=== PATIENT | male | born 1935 | race Caucasian/White ===

== ENCOUNTER 2018-03-10 09:59 | Observation (INO) | payer MEDICARE, OTHER ==
[2018-03-10 11:05] LABS: Hematocrit 33.5 % (42.0-52.0); Hemoglobin 11.5 gm/dL (13.5-18.0); Mean Cell Volume 90.1 fl (78-100); Mean Corpuscular Hemoglobin 30.9 pg (27-31); Mean Corpuscular Hgb Conc 34.3 g/dl (32-36); Mean Platelet Volume 10.8 fl (8-11.3); Neutrophil # 1.9 K/mm3 (1.3-6.0); Red Blood Count 3.72 M/mm3 (4.7-6.0); Red Cell Distribution Width 13.1 % (11.5-14.0); White Blood Count 2.7 K/mm3 (4.0-10.5)
[2018-03-10 11:07] LABS: Platelet Count 98 K/mm3 (150-450)
[2018-03-10 11:10] LABS: ALT 27 U/L (19-67); AST 44 U/L (0-48); Albumin * 3.4 gm/dl (3.4-5.0); Alkaline Phosphatase * 103 U/L (50-170); BUN/Creatinine Ratio 21.8 (9.0-21.6); Blood Urea Nitrogen 19 mg/dL (6-23); Ca. Corrected For Albumin 8.5 mg/dL (8.4-10.2); Calcium * 8.3 mg/dL (7.9-10.9); Carbon Dioxide 25.5 mmol/L (24-32.6); Chloride 98 mmol/L (97-106); Glucose * 102 mg/dL (70-110); Lipase 101 U/L (73-393); Potassium 3.5 mmol/L (3.4-4.6); Sodium 133 mmol/L (132-142); Total Protein 6.3 gm/dL (6.2-8.2)
[2018-03-10 11:13] LABS: CK Total * 1028 U/L (0-259); Troponin I 0.045 ng/mL (0.00-0.10)
[2018-03-10] MEDS ORDERED: NORMAL SALINE 1,000 ML IV ONE (11:14)
[2018-03-10 12:59] LABS: Urine Bilirubin Negative (NEGATIVE); Urine Blood 25 /ul (NEGATIVE); Urine Ketone 15 mg/dL (NEGATIVE); Urine Nitrite Negative (NEGATIVE); Urine Protein 30 mg/dL (NEGATIVE); Urine Specific Gravity 1.025 SP.GR. (1.005-1.030); Urine Urobilinogen Normal (NORMAL)
[2018-03-10 13:29] LABS: Urine Appearance Clear (CLEAR); Urine Bacteria None Seen; Urine Color Dark Yellow; Urine RBC 0-5 /hpf (0-5); Urine WBC TRACE /hpf (0-5)
--- NOTE | 2018-03-10 17:18 | ERNOTE ---
Trauma/Assault HPI - Narrative Date of Service: 03/10/18 - General Stated Complaint: FALL Time Seen by Provider: 03/10/18 10:10 Source: patient, other - friend Exam Limitations: no limitations - Immun/Allergies/Home Medications Immunizations: IMMUNIZATION HX Immunizations Up to Date Yes History of Influenza Vaccine No Hx Pneumococcal Vaccination Yes Allergies/Adverse Reactions: Allergies venom-honey bee [bee venom (honey bee)] Allergy (Verified 03/10/18 10:07) venom-wasp [wasp venom] Allergy (Verified 03/10/18 10:07) Home Medications: HOME MEDICATIONS Acetaminophen [Tylenol] 500 mg PO QID PRN 11/16/14 [Last Taken Unknown] EPINEPHrine [Epipen] 0.3 mg IM ONCE PRN 11/16/14 [Last Taken Unknown] Lisinopril [Prinivil] 10 mg PO ONCE 12/27/17 [Last Taken Unknown] gabapentin 300 mg capsule 300 mg PO DAILY 12/30/17 [Last Taken Unknown] - History of Present Illness Narrative: Patient presents to the ED via EMS. He does not recall events but by report he had fallen and had not been able to get up. He has a hard time getting around at baseline. His friend found him by the bed on the floor, he had fallen overnight. he could not get up so ES was called. He has phong e rib pain but denies any other acute complaints. No CP or SOB. No abdominal pain. No acute focal weakness. No pain with urination. He denies syncope. No LOC or neck pain. Location Occurred: Reports: home Pain Location: Reports: other - ibs Method of Injury: Reports: fall Severity: mild Modifying Factors - (Improves): Reports: other - rest Modifying Factors - (Worsens): Reports: other - palpation Loss of Consciousness: Reports: no loss of consciousness Associated Symptoms - Trauma: Denies: headache, chest pain, shortness of breath, abdominal pain, vomiting Review of Systems - Review of Systems Constitutional: Absent: fever EYE: Absent: vision changes ENT: Absent: sore throat Respiratory: Present: See HPI Cardiology: Present: See HPI Gastrointestinal/Abdominal: Absent: abdominal pain Skin: Absent: rash Neurological: Absent: weakness All Other Systems: All systems neg except as marked Medical History (Last Reviewed 03/10/18 @ 17:14 by Juanito Stinson MD) Erectile dysfunction Onset Date: Unknown HZV (herpes zoster virus) post herpetic neuralgia Onset Date: Unknown History of alcoholism Onset Date: Unknown Hyperlipidemia Onset Date: Unknown Hypertension Onset Date: Unknown Osteoarthritis Onset Date: Unknown Osteoporosis Onset Date: Unknown Peptic ulcer disease Onset Date: Unknown History of melena Onset Date: Unknown Surgical History: Surgical History (Last Reviewed 03/10/18 @ 17:14 by Juanito Stinson MD) H/O colonoscopy Onset Date: ~07/2003 H/O repair of rotator cuff Onset Date: ~1999 History of excision of lesion Onset Date: ~01/05/08 History of left knee replacement Onset Date: ~06/2002 History of prostate biopsy Onset Date: ~12/24/05 History of right hip replacement Onset Date: ~06/1999 Family History: Family History (Last Reviewed 03/10/18 @ 17:14 by Juanito Stinson MD) Grandmother Diabetes Mother Heart disease Social History: Preferred Language Romanian Do you have any hoahaoism or No cultural preference? Smoking Status Former smoker Abuse History No History of abuse Psych History No pertinent hx Alcohol Use heavy Drug Use none Physical Exam - Physical Exam General Appearance: Present: alert, no apparent distress Head Exam: Present: normal inspection, no evidence of injury. Absent: Murry's Sign, raccoon eyes Eye Exam: EOMI: bilateral Ears, Nose, Throat: Present: normal ENT inspection. Absent: dry mucous memb ranes Neck: Present: normal inspection, nontender. Absent: tender posterior midline Respiratory: Present: no respiratory distress, normal breath sounds, no accessory muscle use, lungs clear Cardiovascular/Chest: Present: regular rate, rhythm, normal peripheral pulses, chest tenderness Gastrointestinal/Abdominal: Present: normal bowel sounds, nontender, nondistended, soft Back Exam: Present: no vertebral tenderness. Absent: CVA tenderness (R), CVA tenderness (L) Extremity Exam: Present: other - chronic right hip pain, no other clear acute deformity or tenderness Neurological Exam: Present: alert, other - confused at baseline per friends. No clear acute focal motor or sensory deficits. Ambulates with nurses, by report at his baseline Skin Exam: Present: normal color, warm/dry ED Progress - Results and Orders Patient's Lab Results:: I have reviewed the patient's lab results. - Vital Signs Patient's Vital Signs:: I have reviewed the patient's vital signs. Vital Signs: Vital Signs 03/10/18 10:03 03/10/18 11:26 03/10/18 11:30 Temperature 36.7 C Pulse Rate 89 80 78 Respiratory Rate 20 23 H 20 Blood Pressure 131/67 126/58 134/65 O2 Sat by Pulse Oximetry 96 98 03/10/18 12:00 03/10/18 12:30 03/10/18 13:55 Temperature 36.8 C Pulse Rate 78 77 69 Respiratory Rate 23 H 22 H 15 Blood Pressure 131/66 136/67 131/56 O2 Sat by Pulse Oximetry 97 98 97 - EKG EKG: NSR EKG read: Interp. by me EKG Comments: NSR rate 85. Non-specific, no STEMI noted. - X-Ray X-Ray #1 X-Ray: chest Interpretation: Interp. by me X-ray Comments: I reviewed official radiology report X-Ray #2 X-Ray: hip Interpretation: Interp. by me X-ray Comments: I reviewed official radiology report - CT/Ultrasound CT/Ultrasound Narrative: I reviewed official radiology report HCT - Progress/Reassessment Chief Complaint: Fall Progress Note-Subjective: 03/10/18 18:38 Case management involved. Daughter was coming from [place] to try and take him home so he stayed in the ED. Daughter arrived. She relates that he is much more confused than normal and much weaker and off balance. They tried to get him around here but could not. Given this he is not safe for discharge. D/W Dr Grider who will admit. Departure Clinical Impression: Fall, Elevated CK, Confusion, Gait instability, Adult failure to thrive - Departure Disposition: Still a patient Condition: Stable Referrals: Blank Bustos MD [Primary Care Provider] - Critical Care Time - Critical Care Critical Time Spent:: No
[2018-03-10] MEDS ORDERED: ACETAMINOPHEN 500 MG TABLET PO PRN (22:39)
[2018-03-10] MEDS ORDERED: LISINOPRIL 10 MG TABLET PO SCH (22:45)
--- NOTE | 2018-03-10 22:49 | HP ---
Chief Complaint - Chief Complaint Date of Service: 03/10/18 Time of Service: 22:48 Chief Complaint: Fall, found down, weak History of Present Illness: Ben is an 82 yo male who was found down at his home today. He was laying next to his bed for some unknown amount of time. He has known progressive dementia that has been declining recently. He was brought in to the [facility] ER for evaluation. Bloodwork overall was normal minus an elevated CK of 1000. The patient is pleasantly confused. He denies any concerns but is not sure where he is. He is unable to tell me where he lives or if anyone stays with him. He has difficulty finding the words to answer. Medical History (Last Updated 03/11/18 @ 02:07 by Lyly Chan RN) Dementia Spider bite Hyperlipidemia Onset Date: Unknown Hypertension Onset Date: Unknown Osteoarthritis Onset Date: Unknown Osteoporosis Onset Date: Unknown Surgical History: Surgical History (Last Updated 03/11/18 @ 01:34 by Lyly Chan RN) H/O colonoscopy Onset Date: ~07/2003 History of excision of lesion Onset Date: ~01/05/08 History of left knee replacement Onset Date: ~06/2002 History of right hip replacement Onset Date: ~06/1999 Family History: Family History (Last Updated 03/11/18 @ 02:06 by Lyly Chan RN) Grandmother Diabetes Mother Heart disease Myocardial infarction Father Emphysema of lung Social History: Patient Lives/Resources Home Utilized 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 Smoking Status Former smoker Have you smoked in the past 12 No months Do you dip or chew tobacco No Abuse History No History of abuse Psych History No pertinent hx Alcohol Use heavy Drug Use none Review Of Systems (GEN) - Review of Systems Additional Comments: Unable to obtain at this time. Patient has no reported concerns. Immunizations: IMMUNIZATION HX Immunizations Up to Date Yes History of Influenza Vaccine No Hx Pneumococcal Vaccination Yes Allergies/Adverse Reactions: Allergies Allergy/AdvReac Type Severity Reaction Status Date / Time venom-honey bee Allergy Verified 03/10/18 10:07 [bee venom (honey bee)] venom-wasp [wasp venom] Allergy Verified 03/10/18 10:07 Home Medications: HOME MEDICATIONS Lisinopril [Prinivil] 10 mg PO ONCE 12/27/17 [Last Taken 03/09/18] gabapentin 300 mg capsule 300 mg PO DAILY 12/30/17 [Last Taken 03/09/18] Exam - Exam Vital Signs: Vital Signs - Last Taken Temp 36.8 C 03/10/18 19:14 Pulse 68 03/10/18 19:14 Resp 16 03/10/18 19:14 BP 128/55 03/10/18 19:14 Pulse Ox 97 03/10/18 19:14 Constitutional: Present: Alert, No distress. Absent: Oriented x3 ENT Exam: Present: hearing grossly normal Eye Exam: bilateral eye: normal inspection Respiratory: Present: lungs clear, normal breath sounds, no respiratory distress Cardiovascular/Chest: Present: no edema, tachycardia Peripheral Pulses: radial (R): 2+, radial (L): 2+ Abdomen: Present: Normal bowel sounds, soft, nontender, nondistended, no rebound tenderness, no hepatospenomegaly Extremity: Present: normal inspection Skin Exam: Present: normal color, warm/dry, no cyanosis Lymphatic: Present: no adenopathy Neurologic: Present: other - Patient is pleasantly confused. He has a GCS of 14 due to verbal confusion. He is alert but oriented x 0 Eye contact: Present: cooperative, good eye contact Diagnostic Studies: Abnormal Lab Results 03/10/18 03/10/18 03/10/18 Range/Units 10:33 10:33 12:45 WBC 2.7 L (4.0-10.5) K/mm3 RBC 3.72 L (4.7-6.0) M/mm3 Hgb 11.5 L (13.5-18.0) gm/dL Hct 33.5 L (42.0-52.0) % Plt Count 98 L (150-450) K/mm3 Immature Gran % (Auto) 0.70 H (0.001-0.429) % Lymphocytes % 19.3 L (20-51) % Monocytes % 10.6 H (0.0-9) % Lymphocytes # 0.53 L (1.5-3.5) k/mm3 BUN/Creatinine Ratio 21.8 H (9.0-21.6) Creatine Kinase 1028 H (0-259) U/L Urine Protein 30 H (NEGATIVE) mg/dL Urine Blood 25 H (NEGATIVE) /ul Laboratory Results WBC 2.7 K/mm3 (4.0-10.5) L 03/10/18 10:33 RBC 3.72 M/mm3 (4.7-6.0) L 03/10/18 10:33 Hgb 11.5 gm/dL (13.5-18.0) L 03/10/18 10:33 Hct 33.5 % (42.0-52.0) L 03/10/18 10:33 MCV 90.1 fl (78-100) 03/10/18 10:33 MCH 30.9 pg (27-31) 03/10/18 10:33 MCHC 34.3 g/dl (32-36) 03/10/18 10:33 RDW 13.1 % (11.5-14.0) 03/10/18 10:33 Plt Count 98 K/mm3 (150-450) L 03/10/18 10:33 MPV 10.8 fl (8-11.3) 03/10/18 10:33 Immature Gran % (Auto) 0.70 % (0.001-0.429) H 03/10/18 10:33 Immature Gran # (Auto) 0.02 K/mm3 (0.000-0.0310) 03/10/18 10:33 Neutrophils % 69.0 % (42-75.0) 03/10/18 10:33 Lymphocytes % 19.3 % (20-51) L 03/10/18 10:33 Monocytes % 10.6 % (0.0-9) H 03/10/18 10:33 Eosinophils % 0.0 % (0.0-3.0) 03/10/18 10:33 Basophils % 0.4 % (0.0-1.0) 03/10/18 10:33 Nucleated RBC % 0.0 k/mm3 (0-1) 03/10/18 10:33 Neutrophils # 1.9 K/mm3 (1.3-6.0) 03/10/18 10:33 Lymphocytes # 0.53 k/mm3 (1.5-3.5) L 03/10/18 10:33 Monocytes # 0.3 k/mm3 (0.0-1.0) 03/10/18 10:33 Eosinophils # 0.0 k/mm3 (0.0-0.7) 03/10/18 10:33 Absolute Basophils 0.0 k/mm3 (0.0-0.1) 03/10/18 10:33 Sodium 133 mmol/L (132-142) 03/10/18 10:33 Plasma Sodium 133 mmol/L (130-142) 03/10/18 10:33 Potassium 3.5 mmol/L (3.4-4.6) D 03/10/18 10:33 Chloride 98 mmol/L (97-106) 03/10/18 10:33 Carbon Dioxide 25.5 mmol/L (24-32.6) 03/10/18 10:33 Anion Gap 13.0 mmol/L (6.8-13.8) 03/10/18 10:33 BUN 19 mg/dL (6-23) 03/10/18 10:33 Creatinine 0.87 mg/dL (0.4-1.4) 03/10/18 10:33 Est GFR (Non-Af Amer) 89 mL/min (60-130) 03/10/18 10:33 BUN/Creatinine Ratio 21.8 (9.0-21.6) H 03/10/18 10:33 Random Glucose 102 mg/dL (70-110) 03/10/18 10:33 Lactic Acid, Venous 0.7 mmol/L (0.4-2.0) 03/10/18 10:33 Calcium 8.3 mg/dL (7.9-10.9) 03/10/18 10:33 Calcium Adj for Albumin 8.5 mg/dL (8.4-10.2) 03/10/18 10:33 Total Bilirubin 1.0 mg/dL (0.0-1.1) 03/10/18 10:33 AST 44 U/L (0-48) 03/10/18 10:33 ALT 27 U/L (19-67) 03/10/18 10:33 Alkaline Phosphatase 103 U/L (50-170) 03/10/18 10:33 Ammonia Less than 17.0 mcmol/L (11-35) 03/10/18 10:33 Creatine Kinase 1028 U/L (0-259) H 03/10/18 10:33 Troponin I 0.018 ng/mL (0.00-0.10) 03/10/18 17:39 Total Protein 6.3 gm/dL (6.2-8.2) 03/10/18 10:33 Albumin 3.4 gm/dl (3.4-5.0) 03/10/18 10:33 Lipase 101 U/L (73-393) 03/10/18 10:33 Urine Color Dark yellow 03/10/18 12:45 Urine Appearance Clear (CLEAR) 03/10/18 12:45 Urine pH 6.0 pH (5.0-7.0) 03/10/18 12:45 Ur Specific [place] 1.025 SP.GR. (1.005-1.030) 03/10/18 12:45 Urine Protein 30 mg/dL (NEGATIVE) H 03/10/18 12:45 Urine Glucose (UA) Negative mg/dL (NEGATIVE) 03/10/18 12:45 Urine Ketones 15 mg/dL (NEGATIVE) 03/10/18 12:45 Urine Blood 25 /ul (NEGATIVE) H 03/10/18 12:45 Urine Nitrate Negative (NEGATIVE) 03/10/18 12:45 Urine Bilirubin Negative mg/dl (NEGATIVE) 03/10/18 12:45 Prot Sulfosalicylic Acd 1+ mg/dL (0) 03/10/18 12:45 Urine Urobilinogen Normal EU/dl (NORMAL) 03/10/18 12:45 Ur Leukocyte Esterase Negative /ul (NEGATIVE) 03/10/18 12:45 Urine RBC 0-5 /hpf (0-5) 03/10/18 12:45 Urine WBC Trace /hpf (0-5) 03/10/18 12:45 Ur Epithelial Cells None seen /hpf (0-5) 03/10/18 12:45 Urine Bacteria None seen (NONE) 03/10/18 12:45 Urine Culture Comments No culture indicated 03/10/18 12:45 Ethyl Alcohol Less than 3.0 mg/dL (0.0-10.0) 03/10/18 10:33 Assessment/Plan - Narrative Narrative: Ben is an 82 yo male with: 1) Rhabdomyolysis - Found down for unknown amount of time at home. CK 1000. Will treat with IV fluids. Monitor renal function and CK. 2) Altered mental status - Patient with known dementia. He is not known to me so I am not family with his baseline. From family reports it sounds that he has been declining recently. Unknown if this is progression of his chronic dementia or an acute change due to some underlying condition. No infectious source identified by urine, chest xray, or skin. 3) Social: Will admit to observation at this time as there is no electrolyte abnormality or renal dysfunction. Unsure if the altered mental status is progression of chronic dementia vs related to rhabdomyolysis vs another acute process. - Assessment/Plan (1) Rhabdomyolysis Problem: Acute Qualifiers: Rhabdomyolysis type: non-traumatic Qualified Code(s): M62.82 - Rhabdomyolysis (2) Dementia Problem: Chronic Qualifiers: Dementia type: Alzheimer's disease Alzheimer's disease onset: late-onset Dementia behavioral disturbance: without behavioral disturbance Qualified Code(s): G30.1 - Alzheimer's disease with late onset; F02.80 - Dementia in other diseases classified elsewhere without behavioral disturbance
[2018-03-10] MEDS: NORMAL SALINE 1,000 ML IV PRN (22:58)
[2018-03-11 05:36] LABS: Hematocrit 34.8 % (42.0-52.0); Hemoglobin 11.8 gm/dL (13.5-18.0); Mean Cell Volume 90.6 fl (78-100); Mean Corpuscular Hemoglobin 30.7 pg (27-31); Mean Corpuscular Hgb Conc 33.9 g/dl (32-36); Mean Platelet Volume 10.4 fl (8-11.3); Neutrophil # 1.7 K/mm3 (1.3-6.0); Neutrophil % 72.8 % (42-75.0); Platelet Count 87 K/mm3 (150-450); Red Blood Count 3.84 M/mm3 (4.7-6.0); Red Cell Distribution Width 13.2 % (11.5-14.0); White Blood Count 2.4 K/mm3 (4.0-10.5)
[2018-03-11 05:51] LABS: Albumin * 3.2 gm/dl (3.4-5.0); Anion Gap 8.3 mmol/L (6.8-13.8); Ca. Corrected For Albumin 8.3 mg/dL (8.4-10.2); Carbon Dioxide 25.3 mmol/L (24-32.6); Potassium 3.6 mmol/L (3.4-4.6); Total Protein 6.1 gm/dL (6.2-8.2)
[2018-03-11] MEDS ORDERED: NORMAL SALINE 500 ML IV ONE (06:21)
[2018-03-11] MEDS ORDERED: METOPROLOL TARTRATE 1 MG/ML AMPUL IV ONE (06:30)
[2018-03-11] MEDS: NORMAL SALINE 1,000 ML IV PRN (07:11)
[2018-03-11 07:34] LABS: Total Cells Counted 100
[2018-03-11 07:57] LABS: Band 2 % (0-2.0); Eosinophil 1 % (0-3); Lymphocyte 18 % (20-51); Monocyte 9 % (0-9); Neutrophil 70 % (42-75); Neutrophil # 1.7 K/mm3 (1.3-6.0); Platelet Estimate Decreased (NORMAL); RBC Morphology Normal (NORMAL)
--- NOTE | 2018-03-11 08:45 | PN ---
Progess Note - Interim Date: 03/11/18 Time: 08:43 Narrative: 03/11/18 08:43 Patient is AAO x 1. Positive LBP. Pancytopenia. Will add LDH, Retic count and send for peripheral smear. Will do LS xray and await for PT/OT evaluation. possible discharge to [place] , dementia unit. will increase IVF to 200 ml/hour for his Rhabdomyelisis. positive blood in urine with normal RBC- myoglobinuria ( CK is high) vs also possible hemoglobinuria ( positive pancytopenia)
--- NOTE | 2018-03-11 12:13 | DS ---
(1) Confusion Diagnosis(s): increased recent likely due to progression of his dementia Problem: Acute (2) Elevated CK Diagnosis(s): due to fall . improved. Problem: Acute (3) Rhabdomyolysis Problem: Acute Qualifiers: Rhabdomyolysis type: non-traumatic Qualified Code(s): M62.82 - Rhabdomyolysis (4) Pancytopenia Diagnosis(s): r/o mylodysplastic disorder/aplastic anemia. will follow up with peripheral smear. possible hematology/oncology consult on OPD basis. Problem: Acute (5) Fall Diagnosis(s): due to weakness and unsteady gait. will need walker and PT. Problem: Acute Qualifiers: Encounter type: initial encounter Qualified Code(s): W19.XXXA - Unspecified fall, initial encounter (6) Gait instability Diagnosis(s): with increased fall risk. will prescribe him a walker. Problem: Acute (7) Dementia Problem: Chronic Qualifiers: Dementia type: Alzheimer's disease Alzheimer's disease onset: late-onset Dementia behavioral disturbance: without behavioral disturbance Qualified Code(s): G30.1 - Alzheimer's disease with late onset; F02.80 - Dementia in other diseases classified elsewhere without behavioral disturbance (8) Hypertension Problem: Chronic Qualifiers: Hypertension type: essential hypertension Qualified Code(s): I10 - Essential (primary) hypertension Description of Stay: Damien Drummond, is an 82 yo male, who was admitted on 03/10/2018 due to a fall. He was found down at his home on the day of admission. . He was laying next to his bed for some unknown amount of time. He has known progressive dementia that has been declining recently. He was brought in to the [facility] ER for evaluation. Bloodwork overall was normal except for an elevated CK of 1080 and pancytopenia whic is new.. The patient is pleasantly confused. He denied any concerns but is not sure where he is. He was unable to tell the admitting physicisan where he lives or if anyone stays with him. He has difficulty finding the words to answer. Hus urine showed blood but no RBC. It could be due to myoglobinuria (CK was high) and /or hemoblobinuria ( pancytopenia with elevated LDH). Peripheral smear is pending. He has unsteady gait with weakness and recent falls. He will need home PT and a wheeled walker . We will discharge him to Dementia unit in [place]. Will follow up patient in the office in 1 week. Procedures Performed: none Results and Findings: Lab Pending Results 03/10/18 10:33: Sodium 133, Plasma Sodium 133, Potassium 3.5 D, Chloride 98, Carbon Dioxide 25.5, Anion Gap 13.0, BUN 19, Creatinine 0.87, Est GFR (Non-Af Amer) 89, BUN/Creatinine Ratio 21.8 H, Random Glucose 102, Calcium 8.3, Calcium Adj for Albumin 8.5, Total Bilirubin 1.0, AST 44, ALT 27, Alkaline Phosphatase 103, Creatine Kinase 1028 H, Troponin I 0.045, Total Protein 6.3, Albumin 3.4, Lipase 101, Ethyl Alcohol Less than 3.0 03/10/18 10:33: Ammonia Less than 17.0 03/10/18 10:33: WBC 2.7 L, RBC 3.72 L, Hgb 11.5 L, Hct 33.5 L, MCV 90.1, MCH 30.9, MCHC 34.3, RDW 13.1, Plt Count 98 L, MPV 10.8, Immature Gran % (Auto) 0.70 H, Immature Gran # (Auto) 0.02, Neutrophils % 69.0, Lymphocytes % 19.3 L, Monocytes % 10.6 H, Eosinophils % 0.0, Basophils % 0.4, Nucleated RBC % 0.0, Neutrophils # 1.9, Lymphocytes # 0.53 L, Monocytes # 0.3, Eosinophils # 0.0, Absolute Basophils 0.0 03/10/18 10:33: Lactic Acid, Venous 0.7 03/10/18 12:45: Urine Color Dark yellow, Urine Appearance Clear, Urine pH 6.0, Ur Specific [place] 1.025, Urine Protein 30 H, Urine Glucose (UA) Negative, Urine Ketones 15, Urine Blood 25 H, Urine Nitrate Negative, Urine Bilirubin Negative, Prot Sulfosalicylic Acd 1+, Urine Urobilinogen Normal, Ur Leukocyte Esterase Negative, Urine RBC 0-5, Urine WBC Trace, Ur Epithelial Cells None seen, Urine Bacteria None seen, Urine Culture Comments No culture indicated 03/10/18 17:39: Troponin I 0.018 03/11/18 05:30: WBC 2.4 L, RBC 3.84 L, Hgb 11.8 L, Hct 34.8 L, MCV 90.6, MCH 30.7, MCHC 33.9, RDW 13.2, Plt Count 87 L, MPV 10.4, Immature Gran % (Auto) 0.40, Immature Gran # (Auto) 0.01, Neutrophils % 72.8, Neutrophils % (Manual) 70, Band Neuts % (Manual) 2, Lymphocytes % 16.3 L, Lymphocytes % (Manual) 18 L, Monocytes % 8.8, Monocytes % (Manual) 9, Eosinophils % 1.3, Eosinophils % (Ma nual) 1, Basophils % 0.4, Nucleated RBC % 0.0, Neutrophils # 1.7, Neutrophils # (Manual) 1.7, Lymphocytes # 0.39 L, Lymphocytes # (Manual) 0.4 L, Monocytes # 0.2, Monocytes # (Manual) 0.2, Eosinophils # 0.0, Eosinophils # (Manual) 0.0, Absolute Basophils 0.0, Platelet Estimate Decreased L, RBC Morphology Normal 03/11/18 05:30: Sodium 132, Plasma Sodium 132, Potassium 3.6, Chloride 102, Carbon Dioxide 25.3, Anion Gap 8.3, BUN 15, Creatinine 0.94, Est GFR (Non-Af Amer) 81, BUN/Creatinine Ratio 16.0, Random Glucose 111 H, Calcium 8.0, Calcium Adj for Albumin 8.3 L, Total Bilirubin 1.0, AST 45, ALT 31, Alkaline Phosphatase 103, Creatine Kinase 853 H, Total Protein 6.1 L, Albumin 3.2 L 03/11/18 07:20: Absolute Retic 0.0364, Percent Retic 1.0, Immature Retic Fraction 11.4, Retic Hgb Content 31.4 03/11/18 07:20: Peripheral Blood Smear Spec to pah 03/11/18 08:28: Lactate Dehydrogenase 399 H Discharge Location: [facility] Disposition: [facility] Home Health Agency: [facility] Home Health Condition: Stable Face to Face Encounter completed per CMS Guidelines: Yes Discharge Activity: Activity as tolerated Discharge Diet: Low salt Referrals: Blank Bustos MD [Primary Care Provider] - Problem Oriented Discharge Instructions to Patient/Family: Fall Prevention in the Home, [id number] Additional Patient Instructions (free text): -Please make TCM appointment unless long term discharge. Thank you! Tamera @ ext:[phone]. Fax discharge order to [facility] and [facility]. Call report to [facility] and [facility]arly at discharge. Follow up with PCP in 1 week. Will repeat BMP, CBC and CK Prescriptions (Any new or edited meds): Acetaminophen [Tylenol] 500 mg PO QID PRN #60 tablet PRN Reason: Pain Complete Home Medications List: Complete Home Medication List: Lisinopril [Prinivil] 10 mg PO ONCE 12/27/17 gabapentin 300 mg capsule 300 mg PO DAILY 12/30/17 Acetaminophen [Tylenol] 500 mg PO QID PRN #60 tablet 03/11/18
--- NOTE | 2018-03-11 12:40 | PATHPSR ---
PHYSICIAN: Blank Bustos LAB#: [id number] SPECIMEN DATE: 03/11/2018 CLINICAL INFORMATION: Rhabdomyolysis, low WBC CBC: WBC [2.4] K/mm3, hemoglobin 11.8 gm/dl, hematocrit 34.8 %, MCV is a 0.6 fl, MCH is 30.7 pg, MCHC is 3.9 g/dl, Platelet count 87. Manual differential: Neutrophils 70 %, bands 2 %, lymphocytes 18 %, monocytes 9 %, eosinophils 1 %. RED BLOOD CELLS: No abnormalities PLATELETS: No abnormalities WHITE BLOOD CELLS: No abnormalities DIAGNOSIS: - LEUKOPENIA -THROMBOCYTOPENIA PERIPHERAL BLOOD SMEAR, REVIEW BY PATHOLOGIST: -The peripheral smear shows normochromic normocytic red blood cells. The platelet and a white blood cell counts are decreased. No abnormalities are seen in the white blood cells. COMMENT: No immature elements or malignancy is identified on our examination.
[2018-03-11 16:20] VITALS: BP 123/68
== END 2018-03-11 16:30 | disposition home health service (06) ==
LOC: ER 09:59 → MS 09:59
PROVIDERS: ADMIT Family Medicine; ATTEND Internal Medicine
DX: M62.82 Rhabdomyolysis
CPT/HCPCS: 36415; 70450; 71010; 71045; 72110; 73502; 80053; 80320; 81001; 82140; 82550; 83605; 83615; 83690; 84484; 85025; 85045; 87040; 93005; 96360; 96361; 97162; 97165; 99284; G0378; G0481; G8978; G8979; G8980; G8987; G8988; G8989